=== PATIENT | female | born 1990 | race African-American/Black ===

== ENCOUNTER 2021-04-28 11:23 | Emergency (ER) | payer OTHER ==
[~2021-04-28] VITALS: Ht 170.2 cm; Wt 97.5 kg
[~2021-04-28 11:23] MED LIST: DIFLUCAN150 MG PO; NOHOMEMEDICATIONS
[2021-04-28] MEDS ORDERED: CEPHALEXIN500 MG PO (14:45)
[2021-04-28] MEDS ORDERED: IBU600 MG PO (14:45)
[2021-04-28 16:15] VITALS: BP 124/79
== END 2021-04-28 15:30 | disposition home or self-care (01) ==
LOC: ER 11:23
DX: S91.011A Laceration without foreign body, right ankle, initial encounter (principal); Z98.51 Tubal ligation status; W26.8XXA Contact with other sharp object(s), not elsewhere classified, initial encounter; Y93.89 Activity, other specified; Y92.89 Other specified places as the place of occurrence of the external cause; Y99.8 Other external cause status

== ENCOUNTER 2021-05-10 07:38 | Emergency (ER) | payer OTHER ==
[~2021-05-10] VITALS: Ht 170.2 cm; Wt 95.3 kg
[~2021-05-10 07:38] MED LIST changes: +CEPHALEXIN500 MG PO; +IBU600 MG PO
[2021-05-10 07:39] VITALS: BP 122/80
== END 2021-05-10 07:59 | disposition home or self-care (01) ==
LOC: ER 07:38
DX: S91.011D Laceration without foreign body, right ankle, subsequent encounter (principal); W26.9XXD Contact with unspecified sharp object(s), subsequent encounter; Z79.891 Long term (current) use of opiate analgesic; Z79.899 Other long term (current) drug therapy